=== PATIENT | male | born 1970 | race Caucasian/White ===

== ENCOUNTER 2019-10-15 12:59 | Emergency (ER) | payer MEDICAID ==
[~2019-10-15] VITALS: Ht 185.4 cm; Wt 105.5 kg
[2019-10-15] MEDS ORDERED: HYDROcodone/acetaminophen 10/325mg tab PO ONE (14:25)
[2019-10-15] MEDS ORDERED: METH-360 PO (15:18)
[2019-10-15] MEDS ORDERED: IBUP-1985 PO (15:18)
[2019-10-15] MEDS ORDERED: ketorolac trometh. 30mg/ml inj. IV ONE (15:25)
[2019-10-15 15:26] VITALS: BP 126/92
== END 2019-10-15 15:34 | disposition home or self-care (01) ==
LOC: ER 12:59
DX: M25.512 Pain in left shoulder (principal)
CPT/HCPCS: 73030; 96374; 99283; J1885

== ENCOUNTER 2020-01-20 07:38 | Emergency (ER) | payer MEDICAID, OTHER ==
[~2020-01-20] VITALS: Ht 185.4 cm; Wt 92.0 kg
[~2020-01-20 07:38] MED LIST: IBUP-1985 PO; METH-360 PO
[2020-01-20] MEDS ORDERED: normal saline 1000ML IV soln IVB ONE (08:20)
[2020-01-20 08:44] LABS: BASOPHILS # (AUTO) 0.1 X10'3 (0-0.2); BASOPHILS % (AUTO) 1.1 % (0-1); EOSINOPHILS % (AUTO) 0.6 % (0-6); HEMATOCRIT 40.9 % (42.0-52.0); HEMOGLOBIN 14.1 g/dl (14.0-17.9); LYMPHOCYTES # (AUTO) 1.8 X10'3 (1.1-4.8); LYMPHOCYTES % (AUTO) 33.2 % (21-51); MEAN CORPUSCULAR HGB CONC 34.4 g/dL (33.0-36.5); MEAN CORPUSCULAR VOLUME 98.8 FL (78-98); MEAN PLATELET VOLUME 7.4 FL (7.4-10.4); MONOCYTES # (AUTO) 0.5 X10'3 (0-0.9); NEUTROPHILS # (AUTO) 3.1 X10'3 (1.8-7.7); NEUTROPHILS % (AUTO) 56.1 % (42-75); PLATELET COUNT 268 X10'3 (140-440); RED BLOOD COUNT 4.14 X10'6 (4.70-6.10); RED CELL DISTRIBUTION WIDTH 17.1 % (11.5-14.5); WHITE BLOOD COUNT 5.5 X10'3 (4.5-11.0)
[2020-01-20 08:54] LABS: ALANINE AMINOTRANSFERASE 80 U/L (12-78); ALBUMIN/GLOBULIN RATIO 0.8 (1.1-1.5); ALKALINE PHOSPHATASE 137 IU/L (46-116); ANION GAP 9 (8-16); ASPARTATE AMINO TRANSFERASE 87 U/L (10-37); BILIRUBIN,TOTAL 0.7 MG/DL (0.1-1.0); BLOOD UREA NITROGEN 9 MG/DL (7-18); BUN/CREATININE RATIO 10.1 (5.4-32.0); CALCIUM 8.2 MG/DL (8.5-10.1); CHLORIDE 103 MMOL/L (99-107); CREATININE 0.89 MG/DL (0.60-1.10); ETHANOL 0.176 GM/DL (0.0-0.010); GLUCOSE 90 MG/DL (70-104); LIPASE 150 U/L (73-393); SODIUM 144 MMOL/L (135-145); TOTAL CARBON DIOXIDE 31.7 MMOL/L (24-32); eGFR > 90 ML/MIN
[2020-01-20 08:59] LABS: POTASSIUM 2.8 MMOL/L (3.5-5.1)
[2020-01-20] MEDS ORDERED: potassium Cl 20 mEq SR tablet PO STA (09:01)
[2020-01-20 10:43] VITALS: BP 137/97
== END 2020-01-20 10:44 | disposition home or self-care (01) ==
LOC: ER 07:38
DX: R42 Dizziness and giddiness (principal); F10.229 Alcohol dependence with intoxication, unspecified; K70.10 Alcoholic hepatitis without ascites; J44.9 Chronic obstructive pulmonary disease, unspecified; F17.200 Nicotine dependence, unspecified, uncomplicated; Z79.899 Other long term (current) drug therapy
CPT/HCPCS: 36415; 70450; 80053; 80320; 82948; 83690; 85025; 93005; 96360; 99285; J7030